=== PATIENT | female | born 1940 | race Caucasian/White ===

== ENCOUNTER 2018-05-26 20:52 | Emergency (ER) | payer MEDICARE, MEDICAID ==
[2018-05-26 20:52] VITALS: BMI 25.0
[2018-05-26 21:00] VITALS: BP 167/51; PULSE 83; RESP 16; TEMP 98; O2SAT 98
--- NOTE | 2018-05-26 21:51 | ED PDOC ---
Upper Extremity Pain/Injury Time Seen by Provider: 05/26/18 21:04 Chief Complaint (Nursing): Upper Extremity Problem/Injury Chief Complaint (Provider): Left shoulder pain History Per: Patient, Sign Maintenance ([id number]) History/Exam Limitations: no limitations Onset/Duration Of Symptoms: Hrs Current Symptoms Are (Timing): Still Present Quality: "Pain" Additional Complaint(s): 77 y/o female presents to the ED for an evaluation of left shoulder pain. Patient states she fell today. Otherwise, there is no obvious deformity. Denies rash, numbness or weakness. PMD: Tl Mcdonald Past Medical History Reviewed: Historical Data, Nursing Documentation, Vital Signs Vital Signs: Last Vital Signs Temp 98.0 F 05/26/18 20:59 Pulse 83 05/26/18 20:59 Resp 16 05/26/18 20:59 BP 167/51 H 05/26/18 20:59 Pulse Ox 98 05/26/18 20:59 - Medical History PMH: Diabetes, HTN, Hypercholesterolemia - Surgical History Surgical History: Coronary Stent Denies: Pacemaker - Family History Family History: States: Unknown Family Hx - Home Medications Home Medications: Ambulatory Orders Medication Instructions Recorded Aspirin [Ecotrin] 81 mg PO DAILY 10/12/15 Clopidogrel [Plavix] 75 mg PO DAILY 10/12/15 Colesevelam HCl [Welchol] 625 mg PO BID 10/12/15 Dexlansoprazole [Dexilant] 60 mg PO DAILY 10/12/15 Isosorbide Mononitrate [Isosorbide 30 mg PO DAILY 10/12/15 Mononitrate ER] LORazepam [Ativan] 0.5 mg PO TID 10/12/15 Levothyroxine [Synthroid] 125 mcg PO DAILY 10/12/15 Metoprolol Tartrate 100 mg PO BID 10/12/15 Montelukast [Singulair] 10 mg PO DAILY 10/12/15 Nitroglycerin [Nitrostat] 0.4 mg SL PRN PRN 10/12/15 Potassium Chloride [Klor-Con 10] 10 meq PO DAILY 10/12/15 Rosuvastatin Calcium [Crestor] 20 mg PO DAILY 10/12/15 Sitagliptin Phos/Metformin HCl 1 tab PO BID 10/12/15 [Janumet 50-1,000 mg Tablet] Insulin Aspart [Novolog] 10 unit SQ AC 10/16/15 Insulin Detemir [Levemir] 30 units SQ HS 10/16/15 Cetirizine HCl [Zyrtec] 10 mg PO DAILY #10 capsule 07/01/16 Cyclobenzaprine [Flexeril] 10 mg PO TID #27 tab 05/26/18 Diclofenac Potassium 50 mg PO BID #20 tablet 05/26/18 - Allergies Allergies/Adverse Reactions: Allergies Allergy/AdvReac Type Severity Reaction Status Date / Time No Known Allergies Allergy Verified 05/26/18 20:59 Review of Systems ROS Statement: Except As Marked, All Systems Reviewed And Found Negative Musculoskeletal: Positive for: Shoulder Pain (left) Skin: Negative for: Rash Neurological: Negative for: Weakness, Numbness Physical Exam - Reviewed Nursing Documentation Reviewed: Yes Vital Signs Reviewed: Yes - Physical Exam Appears: Positive for: Well, Non-toxic, No Acute Distress Head Exam: Positive for: ATRAUMATIC, NORMAL INSPECTION, NORMOCEPHALIC Skin: Positive for: Normal Color, Warm, Dry. Negative for: Rash Eye Exam: Positive for: EOMI, Normal appearance, PERRL Cardiovascular/Chest: Positive for: Regular Rate, Rhythm. Negative for: Murmur Respiratory: Positive for: Normal Breath Sounds. Negative for: Decreased Breath Sounds, Wheezing, Respiratory Distress Extremity: Positive for: Tenderness (left shoulder ), Other (left clavicle is intact). Negative for: Normal ROM (limited ROM of the left arm for flexion and abduction), Deformity Neurologic/Psych: Positive for: Alert, Oriented (x3). Negative for: Motor/Sensory Deficits - ECG O2 Sat by Pulse Oximetry: 98 (RA) Pulse Ox Interpretation: Normal Medical Decision Making Medical Decision Making: Time: 2143 Plan: Toradol 60mg Shoulder left [RAD] Reevaluation ----- Scribe Attestation: Documented by Alejandro Hollins, acting as a scribe for Arpan Patrick PA-C Provider Scribe Attestation: All medical record entries made by the Scribe were at my direction and personally dictated by me. I have reviewed the chart and agree that the record accurately reflects my personal performance of the history, physical exam, medical decision making, and the department course for this patient. I have also personally directed, reviewed, and agree with the discharge instructions and d isposition. Disposition - Clinical Impression Clinical Impression: Shoulder pain - Patient ED Disposition Is Patient to be Admitted: No Doctor Will See Patient In The: Office Counseled Patient/Family Regarding: Studies Performed, Diagnosis, Need For Followup, Rx Given - Disposition Referrals: [facility] [Outside] [facility] [Outside] Disposition: Routine/Home Disposition Time: 23:08 Condition: STABLE Prescriptions: Cyclobenzaprine [Flexeril] 10 mg PO TID #27 tab Diclofenac Potassium 50 mg PO BID #20 tablet Instructions: Shoulder Pain (DC) Forms: [facility] ([place])
--- NOTE | 2018-05-27 08:23 | RAD ---
Date of service: 05/26/2018 PROCEDURE: Radiographs of the Left Shoulder HISTORY: s/p fall with limited ROM COMPARISON: No prior. FINDINGS: BONES: No fracture appreciated in this osteopenic appearing bone JOINTS: Minimal glenohumeral and acromioclavicular joint arthrosis. SOFT TISSUES: Normal. OTHER FINDINGS: None. IMPRESSION: No fracture or dislocation appreciated. Generalized osteopenia noted
== END 2018-05-26 23:29 | disposition home or self-care (01) ==
LOC: H.ER 20:52
DX: M25.512 Pain in left shoulder (principal); W19.XXXA Unspecified fall, initial encounter; Y92.89 Other specified places as the place of occurrence of the external cause
CPT/HCPCS: 73030; 96372; 99283; J1885